=== PATIENT | male | born 1995 | race African-American/Black ===

== ENCOUNTER 2017-09-04 23:50 | Emergency (ER) | payer OTHER ==
[2017-09-05 00:15] VITALS: BP 139/97; PULSE 58; TEMP 98.7; BMI 21.9
--- NOTE | 2017-09-05 02:43 | PDOC ---
History of Present Illness - General History Source: Patient Exam Limitations: No Limitations - History of Present Illness Initial Comments: 09/05/17 04:10 The patient is a 22 year old female with no significant PMH who presents to the emergency department with an episode of abdominal pain shortly after urinating about 5 hours ago. He describes experiencing a sudden onset of LLQ abdominal pain right after urinating, which resolved shortly after. He denies any abdominal pain at presentation. He denies hematuria or dysuria. The patient notes he has a history of an unclear similar episode in the past but is unsure how to qualify it. The patient denies chest pain, shortness of breath, headache and dizziness. Denies fever, chills, nausea, vomit, diarrhea and constipation. Denies dysuria, frequency, urgency and hematuria. Allergies: NKA Past surgical history: None reported. Social history: No reported cigarette, alcohol, or drug use. PCP: Dr. Werner <Pino Brewer - Last Filed: 09/05/17 04:10> - General History Source: Patient <Duke Hussein - Last Filed: 09/05/17 19:25> - General Chief Complaint: Pain Stated Complaint: ABD PAIN Time Seen by Provider: 09/05/17 02:37 Past History <Pino Brewer - Last Filed: 09/05/17 04:10> - Past Medical History COPD: No Other medical history: Pt denies - Immunization History Immunization Up to Date: Yes - Suicide/Smoking/Psychosocial Hx Smoking History: Never smoked Have you smoked in the past 12 months: No Information on smoking cessation initiated: No Hx Alcohol Use: No Drug/Substance Use Hx: No Substance Use Type: None <Duke Hussein - Last Filed: 09/05/17 19:25> - Past Medical History Allergies/Adverse Reactions: Allergies Allergy/AdvReac Type Severity Reaction Status Date / Time No Known Allergies Allergy Verified 09/05/17 00:08 Home Medications: Ambulatory Orders Doxycycline Hyclate 100 mg PO BID #20 capsule 04/28/16 Ibuprofen [Motrin] 600 mg PO TID #30 tablet 09/05/17 Review of Systems - Review of Systems Able to Perform ROS?: Yes Comments:: 09/05/17 04:10 CONSTITUTIONAL: Absent: fever, chills, diaphoresis, generalized weakness, malaise, loss of appetite HEENT: Absent: rhinorrhea, nasal congestion, throat pain, throat swelling, difficulty swallowing, mouth swelling, ear pain, eye pain, visual Changes CARDIOVASCULAR: Absent: chest pain, syncope, palpitations, irregular heart rate, lightheadedness , peripheral edema RESPIRATORY: Absent: cough, shortness of breath, dyspnea with exertion, orthopnea, wheezing, stridor, hemoptysis GASTROINTESTINAL: (+) Episode of LLQ abdominal pain shortly after urination ( resolved). Absent: abdominal pain, abdominal distension, nausea, vomiting, diarrhea, constipation, melena, hematochezia GENITOURINARY: Absent: dysuria, frequency, urgency, hesitancy, hematuria, flank pain, genital pain MUSCULOSKELETAL: Absent: myalgia, arthralgia, joint swelling SKIN: Absent: rash, itching, pallor HEMATOLOGIC/IMMUNOLOGIC: Absent: easy bleeding, easy bruising, lymphadenopathy, frequent infections ENDOCRINE: Absent: unexplained weight gain, unexplained weight loss, heat intolerance, cold intolerance NEUROLOGIC: Absent: headache, focal weakness or paresthesias, dizziness, unsteady gait, seizure, mental status changes, bladder or bowel incontinence PSYCHIATRIC: Absent: anxiety, depression, suicidal or homicidal ideation, hallucinations. <Pino Brewer - Last Filed: 09/05/17 04:10> *Physical Exam - Vital Signs Last Vital Signs Temp Pulse Resp BP Pulse Ox 98.7 F 58 L 18 139/97 100 09/05/17 00:13 09/05/17 00:13 09/05/17 00:13 09/05/17 00:13 09/05/17 00:13 - Physical Exam Comments: 09/05/17 04:10 GENERAL: Well developed, well nourished. Awake and alert. No acute distress. HEENT: Normocephalic, atraumatic. PERRLA, EOMI. No conjunctival pallor. Sclera are non- icteric. Moist mucous membranes. Oropharynx is clear. NECK: Supple. Full ROM. No JVD. Carotid pulses 2+ and symmetric, without bruits. No thyromegaly. No lymphadenopathy. CARDIOVASCULAR: Regular rate and rhythm. No murmurs, rubs, or gallops. Distal pulses are 2+ and symmetric. PULMONARY: No evidence of respiratory distress. Lungs clear to auscultation bilaterally. No wheezing, rales or rhonchi. ABDOMINAL: Soft. Non-tender. Non-distended. No rebound or guarding. No organomegaly. Normoactive bowel sounds. MUSCULOSKELETAL: Normal range of motion at all joints. No bony deformities or tenderness. No CVA tenderness. EXTREMITIES: No cyanosis. No clubbing. No edema. No calf tenderness. SKIN: Warm and dry. Normal capillary refill. No rashes. No jaundice. NEUROLOGICAL: Alert, awake, appropriate. Cranial nerves 2-12 intact. No deficits to light touch and temperature in face, upper extremities and lower extremities. No motor deficits in the in face, upper extremities and lower extremities. Normoreflexic in the upper and lower extremities. Normal speech. Toes are downgoing bilaterally. Gait is normal without ataxia. PSYCHIATRIC: Cooperative. Good eye contact. Appropriate mood and affect. <Pino Brewer - Last Filed: 09/05/17 04:10> - Vital Signs Last Vital Signs Temp Pulse Resp BP Pulse Ox 98.7 F 58 L 18 139/97 100 09/05/17 00:13 09/05/17 00:13 09/05/17 00:13 09/05/17 00:13 09/05/17 00:13 <Duke Hussein - Last Filed: 09/05/17 19:25> ED Treatment Course - ADDITIONAL ORDERS Additional order review: Laboratory Results 09/05/17 03:13 Urine Color Yellow Urine Appearance Clear Urine pH 5.0 Ur Specific [place] 1.025 Urine Protein Negative Urine Glucose (UA) Negative Urine Ketones Negative Urine Blood Negative Urine Nitrite Negative Urine Bilirubin Negative Urine Urobilinogen Negative Ur Leukocyte Esterase Negative <Pino Brewer - Last Filed: 09/05/17 04:10> Medical Decision Making - Medical Decision Making 09/05/17 19:23 Dr. Hussein: The scribe's documentation has been prepared under my direction and personally reviewed by me in its entirery. I confirm that the note above accurately reflects all work, treatment, procedures, and medical decision making performed by me. Patient with remote history of kidney stones, had negative urinalysis, and CAT scan. Patient showed evidence of a punctate kidney stone in the right kidney. Patient referred to urology <Duke Hussein - Last Filed: 09/05/17 19:25> *DC/Admit/Observation/Transfer - Attestations Scribe Attestion: 09/05/17 04:11 Documentation prepared by Pino Brewer, acting as lpn medical assistant for Duke Hussein DO. <Pino Brewer - Last Filed: 09/05/17 04:10> - Discharge Dispostion Admit: No <Duke Hussein - Last Filed: 09/05/17 19:25> Diagnosis at time of Disposition: Kidney stone on left side Abdominal pain Qualifiers: Abdominal location: left lower quadrant Qualified Code(s): R10.32 - Left lower quadrant pain - Discharge Dispostion Disposition: HOME Condition at time of disposition: Stable - Prescriptions Prescriptions: Ibuprofen [Motrin] 600 mg PO TID #30 tablet - Referrals Referrals: Dagoberto Werner [Primary Care Provider] - Elmer Melgoza MD [Staff Physician] - - Patient Instructions Printed Discharge Instructions: DI for Kidney Stones, DI for Abdominal Pain- Adult Additional Instructions: YOu may have passed at kidney stone on the left side, which is no longer, because you have a small one right kidney. TAke medication as needed and drink plenty of fluids - Post Discharge Activity
[2017-09-05 03:29] LABS: URINE APPEARANCE CLEAR; URINE BILIRUBIN NEGATIVE (NEGATIVE); URINE BLOOD NEGATIVE (NEGATIVE); URINE COLOR YELLOW; URINE GLUCOSE (UA) NEGATIVE (NEGATIVE); URINE KETONE NEGATIVE (NEGATIVE); URINE LEUK ESTERASE NEGATIVE (NEGATIVE); URINE NITRITE NEGATIVE (NEGATIVE); URINE PROTEIN NEGATIVE (NEGATIVE); URINE UROBILINOGEN NEGATIVE mg/dL (0.2-1.0)
== END 2017-09-05 04:23 | disposition home or self-care (01) ==
LOC: JER 23:50
DX: N20.0 Calculus of kidney (principal)
CPT/HCPCS: 74176; 81003; 87086; 99282-25

== ENCOUNTER 2018-04-22 21:21 | Emergency (ER) | payer OTHER ==
--- NOTE | 2018-04-22 21:30 | PDOC ---
History of Present Illness - General History Source: Patient Exam Limitations: No Limitations <JustinaPino - Last Filed: 04/22/18 21:30> - History of Present Illness Initial Comments: 04/22/18 21:33 The patient is a 23 year old male with no significant past medical history who presents to the ED with complaints of a bump on his left foot that developed two months ago. The patient states the bump brings him pain when he applies pressure to his feet when walking. He states he often wears dress shoes for work and denies any injury to the area, cuts or recent infection. Denies any fevers or chills. <Jessica Cabrera - Last Filed: 04/22/18 21:44> - General Chief Complaint: Pain Stated Complaint: LEFT HEEL PAIN Time Seen by Provider: 04/22/18 21:28 Past History - Past Medical History COPD: No - Immunization History Immunization Up to Date: Yes - Suicide/Smoking/Psychosocial Hx Smoking History: Never smoked Have you smoked in the past 12 months: No Hx Alcohol Use: No Drug/Substance Use Hx: No Substance Use Type: None <Pino Horn - Last Filed: 04/22/18 21:30> <Jessica Cabrera - Last Filed: 04/22/18 21:44> - Past Medical History Allergies/Adverse Reactions: Allergies Allergy/AdvReac Type Severity Reaction Status Date / Time No Known Allergies Allergy Verified 04/22/18 21:22 Home Medications: Ambulatory Orders NK [No Known Home Medication] 04/22/18 Review of Systems - Review of Systems Comments:: 04/22/18 21:35 GENERAL/CONSTITUTIONAL: No fever or chills. No weakness. HEAD, EYES, EARS, NOSE AND THROAT: No change in vision. No ear pain or discharge. No sore throat. CARDIOVASCULAR: No chest pain or shortness of breath. RESPIRATORY: No cough, wheezing, or hemoptysis. GASTROINTESTINAL: No nausea, vomiting, diarrhea or constipation. GENITOURINARY: No dysuria, frequency, or change in urination. MUSCULOSKELETAL: (+) Left foot pain. No neck or back pain. SKIN: No rash NEUROLOGIC: No headache, vertigo, loss of consciousness, or change in strength/ sensation. ENDOCRINE: No increased thirst. No abnormal weight change. HEMATOLOGIC/LYMPHATIC: No anemia, easy bleeding, or history of blood clots. ALLERGIC/IMMUNOLOGIC: No hives or skin allergy. All Other Systems: Reviewed and Negative <Jessica Cabrera - Last Filed: 04/22/18 21:44> *Physical Exam - Vital Signs Last Vital Signs Temp Pulse Resp BP Pulse Ox 98.5 F 66 15 137/76 100 04/22/18 21:21 04/22/18 21:21 04/22/18 21:21 04/22/18 21:21 04/22/18 21:21 <Pino Horn - Last Filed: 04/22/18 21:30> - Vital Signs Last Vital Signs Temp Pulse Resp BP Pulse Ox 98.5 F 66 15 137/76 100 04/22/18 21:21 04/22/18 21:21 04/22/18 21:21 04/22/18 21:21 04/22/18 21:21 - Physical Exam Comments: 04/22/18 21:38 GENERAL: Awake, alert, and fully oriented, in no acute distress HEAD: No signs of trauma EYES: PERRLA, EOMI, sclera anicteric, conjunctiva clear ENT: Auricles normal inspection, hearing grossly normal, nares patent, oropharynx clear without exudates. Moist mucosa NECK: Normal ROM, supple, no lymphadenopathy, JVD, or masses LUNGS: Breath sounds equal, clear to auscultation bilaterally. No wheezes, and no crackles HEART: Regular rate and rhythm, normal S1 and S2, no murmurs, rubs or gallops ABDOMEN: Soft, nontender, normoactive bowel sounds. No guarding, no rebound. No masses EXTREMITIES: (+) 3 x 3mm left heel callus, no drainage, erythema, no infection. Normal range of motion, no edema. No clubbing or cyanosis. No cords, erythema NEUROLOGICAL: Cranial nerves II through XII grossly intact. Normal speech, normal gait SKIN: Warm, Dry, normal turgor, no rashes <Jessica Cabrera - Last Filed: 04/22/18 21:44> Medical Decision Making - Medical Decision Making 04/22/18 21:30 A portion of this note was documented by scribe services under my direction. I have reviewed the details of the note, within reason, and agree with the documentation with the following case summary and management plan written by me. Patient treated in the ED. Nursing notes are reviewed and incorporated into the medical decision-making. Vital signs reviewed. Vital Signs Temp Pulse Resp BP Pulse Ox 98.5 F 66 15 137/76 100 04/22/18 21:21 04/22/18 21:21 04/22/18 21:21 04/22/18 21:21 04/22/18 21:21 23-year-old male with no medical history presents with left heel "bump" for 2 months. Patient noted that he has developed this intermittent painful left bump to her left heel. States that he walks frequently and dress shoes were stopped. No fevers or chills. Stated the pain was persistent so came to the ER. Patient was concerned that he thought this may be some other underlying pathology such as infectiobn or malignancy. For my examination, this is consistent with callused foot. I advised supportive care in good heel support. I will give him referral to coin machine servicer repairer. There are no signs of infection. Do not suspect his malignancy. Patient feels reassured and he would like to go home. I discussed the physical exam findings, ancillary test results and final diagnoses with the patient. I answered all of the patient's questions. The patient was satisfied with the care received and felt comfortable with the discharge plan and treatment plan. The patient will call their primary care physician within 24 hours to arrange follow-up and will return to the Emergency Department with any new, persistant or worsening symptoms. <Pino Horn - Last Filed: 04/22/18 21:30> *DC/Admit/Observation/Transfer <Pino Horn - Last Filed: 04/22/18 21:30> - Attestations Scribe Attestion: 04/22/18 21:44 Documentation prepared by Jessica Cabrera, acting as certified court/medical interpreter for Pino Horn MD. <Jessica Cabrera - Last Filed: 04/22/18 21:44> Diagnosis at time of Disposition: Heel callus - Discharge Dispostion Disposition: HOME Condition at time of disposition: Good - Referrals Referrals: Dagoberto Werner [Primary Care Provider] - Shaggy Flores MD [Staff Physician] - - Patient Instructions Printed Discharge Instructions: DI for Calluses and Corns Additional Instructions: Please make an appointment with a coin machine servicer repairer. Call to schedule an appointment. - Post Discharge Activity
[2018-04-22 21:58] VITALS: BP 137/76; PULSE 66; TEMP 98.5; BMI 23.5
== END 2018-04-22 21:35 | disposition home or self-care (01) ==
LOC: FER 21:21
DX: L84 Corns and callosities (principal)
CPT/HCPCS: 99282-25

== ENCOUNTER 2018-05-25 15:22 | Emergency (ER) | payer OTHER ==
[2018-05-25 15:28] VITALS: BP 128/70; PULSE 64; TEMP 98.1; BMI 21.9
[2018-05-25] MEDS ORDERED: diphenhydrAMINE HCL 25 MG CAPSULE (FP) PO ONE (15:35)
[2018-05-25] MEDS ORDERED: predniSONE 20 MG TABLET (UD) PO ONE (15:35)
--- NOTE | 2018-05-25 15:41 | PDOC ---
History of Present Illness - General Chief Complaint: Rash Stated Complaint: RASH Time Seen by Provider: 05/25/18 15:29 History Source: Patient - History of Present Illness Initial Comments: 05/25/18 15:36 23yoM no pmhx presents w/ 2d of generalized, progressive itchy rash. no fevers, no warmth, no obvious erythema but pt is very dark skinned. no difficulty breathing, no itchy/watery eyes. used cortisone cream yesterday without relief. Past History - Past Medical History Allergies/Adverse Reactions: Allergies Allergy/AdvReac Type Severity Reaction Status Date / Time No Known Allergies Allergy Verified 05/25/18 15:23 Home Medications: Ambulatory Orders Diphenhydramine HCl [Benadryl -] 25 mg PO Q8H 4 Days #12 capsule 05/25/18 Prednisone [Prednisone 50 MG TABLETS] 50 mg PO DAILY 4 Days #4 tablet 05/25/18 COPD: No - Immunization History Immunization Up to Date: Yes - Suicide/Smoking/Psychosocial Hx Smoking History: Never smoked Have you smoked in the past 12 months: No Hx Alcohol Use: No Drug/Substance Use Hx: No Substance Use Type: None Review of Systems - Review of Systems All Other Systems: Reviewed and Negative *Physical Exam - Vital Signs Last Vital Signs Temp Pulse Resp BP Pulse Ox 98.1 F 64 14 128/70 100 05/25/18 15:23 05/25/18 15:23 05/25/18 15:23 05/25/18 15:23 05/25/18 15:23 - Physical Exam Comments: 05/25/18 15:37 nad well apeparing RRR CTABL soft NTND diffuse, fine rash of very small papules, no pustules, no bullae, no appreciable warmth/erythema. A&O x 3 Medical Decision Making - Medical Decision Making 05/25/18 15:38 23yoM w/ viral exanthem vs. allergy, no apparent allergic triggers on history. No e/o anaphylaxis. - benadryl/prednisoen - f/u w/ pmd. *DC/Admit/Observation/Transfer Diagnosis at time of Disposition: Rash and nonspecific skin eruption - Discharge Dispostion Disposition: HOME Condition at time of disposition: Good Decision to Admit order: No - Prescriptions Prescriptions: Diphenhydramine HCl [Benadryl -] 25 mg PO Q8H 4 Days #12 capsule Prednisone [Prednisone 50 MG TABLETS] 50 mg PO DAILY 4 Days #4 tablet - Referrals Referrals: Dagoberto Werner [Primary Care Provider] - - Patient Instructions Printed Discharge Instructions: DI for Viral Rash-Child Additional Instructions: Follow up with your regular doctor this week. Avoid possible allergens - no new detergents, no new soaps. medicines have been submitted to your pharmacy: Benadryl for itching and allergy Prednisone for inflammation Pepcid. Return ot the ER for: difficulty breathing or swallowing, swelling or lips/mouth/tongue. - Post Discharge Activity
[2018-05-25] MEDS ORDERED: predniSONE 10 MG TABLET (UD) ONE (15:43)
[2018-05-25] MEDS ORDERED: predniSONE 20 MG TABLET (UD) ONE (15:44)
[2018-05-25] MEDS ORDERED: diphenhydrAMINE HCL 50 MG CAPSULE ONE (15:44)
== END 2018-05-25 15:54 | disposition home or self-care (01) ==
LOC: FER 15:22
DX: R21 Rash and other nonspecific skin eruption (principal)
CPT/HCPCS: 99281-25

== ENCOUNTER 2019-02-12 20:52 | Emergency (ER) | payer OTHER ==
[2019-02-12 21:07] VITALS: BP 136/79; PULSE 78; TEMP 98.1; BMI 22.7
[2019-02-12 21:35] LABS: EPITHELIAL CELLS FEW /hpf
[2019-02-12] MEDS ORDERED: CEPHALEXIN MONOHYDRATE 500 MG CAPSULE (UD) PO ONE (21:37)
[2019-02-12] MEDS ORDERED: CEPHALEXIN MONOHYDRATE 500 MG CAPSULE (UD) ONE (21:42)
--- NOTE | 2019-02-12 21:52 | PDOC ---
Documentation entered by Sylvester Napier SCRIBE, acting as scribe for Na Allen MD. Na Allen MD: This documentation has been prepared by the Karthikeyan pedroza Elijah, SCRIBE, under my direction and personally reviewed by me in its entirety. I confirm that the documentation accurately reflects all work, treatment, procedures, and medical decision making performed by me. History of Present Illness - General Chief Complaint: Urinary Problem Stated Complaint: PAINFUL URINATION WITH SOME BLOOD Time Seen by Provider: 02/12/19 21:00 History Source: Patient Exam Limitations: No Limitations - History of Present Illness Initial Comments: 02/12/19 21:29 The patient is a 24 year old male with no reported significant past medical history who presents to the ED with hematuria occurring this afternoon. Patient reports that he went to use the restroom today, and when he urinated, three drops of red blood came out as well as some burning with urination. Patient reports being sexually active with 1 partner, occasionally using condoms and also wanted to get checked for an STI (Last checked x4 months prior which he states was wnl). hematuria has since resolved. Patient reported upper right sided back pain that began a week ago but has since subsided. Denies Urinary frequency, urinary Urgency, testicular pain and past STD's. no urethral discharge. Denies fever, chills, chest pain, SOB, palpitation, dizziness, weakness, N, V, D , abdominal pain, bowel problems, leg swelling, No sick contacts or travel. Social history: Lives with family. No tobacco, ETOH or drug use. 02/12/19 21:52 02/12/19 21:53 Past History - Past Medical History Allergies/Adverse Reactions: Allergies Allergy/AdvReac Type Severity Reaction Status Date / Time No Known Allergies Allergy Verified 02/12/19 20:53 Home Medications: Ambulatory Orders Cephalexin Monohydrate [Keflex -] 500 mg PO BID #14 capsule 02/12/19 COPD: No - Immunization History Immunization Up to Date: Yes - Suicide/Smoking/Psychosocial Hx Smoking History: Never smoked Have you smoked in the past 12 months: No Information on smoking cessation initiated: No Hx Alcohol Use: No Drug/Substance Use Hx: No Substance Use Type: None Review of Systems - Review of Systems Comments:: 02/12/19 21:36 Constitutional: no fevers or chills. HEENT: no headache or dizziness. No congestion. No visual/hearing disturbances. CVS: no cp or syncope. Resp: no sob. No cough. Gastrointestinal: no abdominal pain, nausea or vomiting. no diarrhea. Genitourinary: +hematuria and dysuria; no frequency or urgency. no testicular or scrotal pain/swelling. MUSCULOSKELETAL: No joint pain and swelling. No neck or back pain. SKIN: no redness or skin changes, no discharge, no rash. No wounds. Hematologic: no easy bruising/bleeding. NEUROLOGIC: No headache, dizziness, LOC or altered mental status. No weakness, numbness or tingling. Psych: no anxiety or depression Allergic/Immunologic: no allergies All other systems reviewed and negative, or as documented in HPI. 02/12/19 21:54 *Physical Exam - Vital Signs Last Vital Signs Temp Pulse Resp BP Pulse Ox 98.1 F 78 16 136/79 99 02/12/19 20:53 02/12/19 20:53 02/12/19 20:53 02/12/19 20:53 02/12/19 20:53 - Physical Exam Comments: 02/12/19 21:27 General: Well appearing, awake and alert, NAD. HEENT: NCAT, PERRL, EOMI, clear conjunctiva, anicteric, moist mucus membranes, clear oropharynx, no oral lesions.. Neck: neck supple, FROM Resp: CTAB, normal and even respirations, no respiratory distress CVS: RRR, no murmurs, 2+ peripheral pulses throughout, no peripheral edema Abdomen: soft, NTND, no peritoneal signs. Male : normal external genitalia, no lesions, normal testicular lie, no scrotal or testicular edema or tenderness. +cremaster reflex bilaterally. no hernia. no urethral discharge Back: nontender, normal inspection and ROM, no CVAT/flank tenderness MSK: no edema, AYALA x4, ROM intact. No clubbing or cyanosis. normal bulk and tone. Neuro: alert Psych: calm and cooperative Skin: warm and well perfused, cap refill <2 sec, normal color 02/12/19 21:55 ED Treatment Course - ADDITIONAL ORDERS Additional order review: Laboratory Results 02/12/19 21:08 Urine Color Yellow Urine Appearance Sl cloudy Urine pH 5.0 Urine Protein Negative Urine Glucose (UA) Negative Urine Ketones Trace Urine Blood 3+ H Urine Nitrite Negative Urine Bilirubin Negative Urine Urobilinogen 0.2 Ur Leukocyte Esterase 1+ Urine RBC 10-20 Urine WBC 10-20 Ur Transition Epith Cell Few - Medications Given in the ED: ED Medications Discontinued Medications Generic Name Dose Route Start Last Admin Trade Name Liv PRN Reason Stop Dose Admin Cephalexin HCl 500 mg 02/12/19 21:37 02/12/19 21:41 Keflex - PO 02/12/19 21:38 500 mg ONCE ONE Administration Medical Decision Making - Medical Decision Making 02/12/19 21:56 hpi as documented VS reviewed, wnl DDx. Male : hernia, orchitis, epididymitis, UTI, pyelonephritis, appy, STD, trich. renal /ureteral colic. no sytemic sx. GC/chlamydia and trich testing sent UA prelim with WBC/RBCs>10-20, correlating with likely hemorrhagic cystitis with acute UTI sx (hematuria and dysuria) no flank or abdominal pain to suggest renal or ureteral colic, does not appear colicky. treat with keflex for acute UTI, f/u urine cultures this is most likely alternative etiology f/u GC/chlamycia/trich testing, if positive then call back for proper treatment. keflex course x 1 week, first dose here. return precautions, worsening infection, genitalia/abdominal sx. pt verbalized understanding of impression and plan. Abstinence and safe sex precautions were provided and the patient demonstrated understanding. *DC/Admit/Observation/Transfer Diagnosis at time of Disposition: Hemorrhagic cystitis - Discharge Dispostion Disposition: HOME Condition at time of disposition: Improved Decision to Admit order: No - Prescriptions Prescriptions: Cephalexin Monohydrate [Keflex -] 500 mg PO BID #14 capsule - Referrals Referrals: [facility] [place] [Provider Group] [facility] [address] [Provider Group] - Patient Instructions Printed Discharge Instructions: How to Detect and Treat STDs, DI for Urinary Tract Infection (UTI) Additional Instructions: 1) Please follow-up with your primary care doctor in the next 1-2 days. Please call tomorrow for for any urgent issues. referrals given for followup 2) You were given a copy of the tests performed today. Please bring the results with you and review them with your primary care doctor. Your laboratory results were notable for blood and inflammation consistent with infection in your urinary tract. your std testing is still pending, you should have results in the next 24-48 hours, expect a call or you can call the department for results that will determine if you need further treatment 3) If you have any worsening of symptoms or any other concerns please return to the ED immediately. Return if worsening symptoms including fevers, headache, vomiting, visual or hearing disturbances, abdominal pain, chest pain, shortness of breath, syncope, dehydration, inability to take things by mouth/vomiting, altered mental status, or worsening concerning symptoms. 4) Please continue taking your home medications as directed. your medications on discharge include keflex twice a day x 1 week . side effects may include upset stomach, abdominal pain, vomiting, or diarrhea. do not drink alcohol with your medications. practice safe sex, condom use and regular STD testing. practice proper hygiene - Post Discharge Activity
== END 2019-02-12 22:14 | disposition home or self-care (01) ==
LOC: FER 20:52
DX: N30.91 Cystitis, unspecified with hematuria (principal)
CPT/HCPCS: 36415; 81003; 81015; 87081; 87086; 87110; 87491; 87591; 87661; 99283-25

== ENCOUNTER 2019-06-07 22:17 | Emergency (ER) | payer SELFPAY ==
[2019-06-07 22:31] VITALS: BP 140/96; PULSE 70; TEMP 99; BMI 22.8
[2019-06-07 23:10] LABS: EPITHELIAL CELLS RARE /hpf
[2019-06-07] MEDS ORDERED: KETOROLAC TROMETHAMINE 30 MG/1 ML VIAL IVPUSH ONE (23:15)
[2019-06-07 23:17] LABS: BASO % 3.2 % (0-2.0); EOS % 1.4 % (0-4.5); HEMATOCRIT 45.2 % (35.4-49); HEMOGLOBIN 15.5 GM/dl (11.7-16.9); LYMPH % 15.9 % (8-40); MCH 31.8 pg (25.7-33.7); MCHC 34.3 g/dl (32.0-35.9); MEAN CELL VOLUME 92.6 fl (80-96); MONO % 11.6 % (3.8-10.2); NEUT % 67.9 % (42.8-82.8); PLATELET COUNT 173 K/MM3 (134-434); RBC 4.88 M/mm3 (4.00-5.60); RDW 12.3 % (11.9-15.9); WHITE BLOOD COUNT 9.3 K/mm3 (4.0-10.8)
[2019-06-07] MEDS ORDERED: ONDANSETRON 4 MG/2 ML VIAL ONE (23:17)
[2019-06-07] MEDS ORDERED: ONDANSETRON 4 MG/2 ML VIAL IVPUSH ONE (23:17)
[2019-06-07] MEDS ORDERED: KETOROLAC TROMETHAMINE 30 MG/1 ML VIAL ONE (23:17)
[2019-06-07 23:41] LABS: ALBUMIN 4.2 g/dl (3.4-5.0); BILIRUBIN,TOTAL 1.5 mg/dl (0.2-1); CALCIUM 9.3 mg/dl (8.5-10); CREATININE 1.9 mg/dl (0.55-1.3); TOT PROT 7.4 g/dl (6.4-8.2)
[2019-06-07] MEDS ORDERED: SODIUM CHLORIDE 1,000 ML IV STA (23:53)
--- NOTE | 2019-06-08 00:36 | PDOC ---
Documentation entered by Felisah Holly SCRIBE, acting as scribe for Danielle Edmonds MD. Danielle Edmonds MD: This documentation has been prepared by the Avni pedroza Adrianna, SCRIBE, under my direction and personally reviewed by me in its entirety. I confirm that the documentation accurately reflects all work, treatment, procedures, and medical decision making performed by me. History of Present Illness - General Chief Complaint: Urinary Problem Time Seen by Provider: 06/07/19 22:19 - History of Present Illness Initial Comments: The patient is a 24 year old male, with a significant PMH of kidney stones ( last year, was passed on its own without urology intervention), who presents to the ED for evaluation of abdominal pain for one day. Patient complains of abdominal pain that originated in the epigastric region, but is now most prominent at the right flank and lower abdomen. Patient went to [facility] ER at 3am this morning, and his CT scan demonstrated a 1mm right kidney stone. He was given morphine and toradol at [facility] with some relief of symptoms. Patient notes his pain returned earlier this afternoon, with new onset urinary hesitancy. He states he feels as if he needs to urinate, but is only able to produce a small amount. Patient notes he has tried to drink water, but it makes him feel nauseous (denies any vomit). He has taken Tylenol earlier today with minimal relief of symptoms. Patient denies dysuria or hematuria. Allergies: NKA, NKDA Surgical History: None reported Social History: Denies EtOH, tobacco, or illicit drug use PCP: Dr. Werner Past History - Past Medical History Allergies/Adverse Reactions: Allergies Allergy/AdvReac Type Severity Reaction Status Date / Time No Known Allergies Allergy Verified 02/12/19 20:53 Home Medications: Ambulatory Orders Ondansetron [Zofran *Odt*] 4 mg SL BID PRN #10 od.tablet 06/08/19 Oxycodone HCl/Acetaminophen [Percocet 5-325 mg Tablet] 1 tab PO Q6H PRN #8 tablet MDD 2 tabs 06/08/19 COPD: No Kidney Stones: Yes - Immunization History Immunization Up to Date: Yes - Psycho Social/Smoking Cessation Hx Smoking History: Never smoked Have you smoked in the past 12 months: No Hx Alcohol Use: No Drug/Substance Use Hx: No Substance Use Type: None Review of Systems - Review of Systems Comments:: GENERAL/CONSTITUTIONAL: No fever or chills. No weakness. HEAD, EYES, EARS, NOSE AND THROAT: No change in vision. No ear pain or discharge. No sore throat. CARDIOVASCULAR: No chest pain or shortness of breath. RESPIRATORY: No cough, wheezing, or hemoptysis. GASTROINTESTINAL: +Nausea. +Lower abdominal pain. +Epigastric pain. No vomiting , diarrhea or constipation. GENITOURINARY: +Urinary hesitancy. +Right 1mm kidney stone. No dysuria or frequency. MUSCULOSKELETAL: +Right flank pain. No joint or muscle swelling or pain. No neck pain. SKIN: No rash NEUROLOGIC: No headache, vertigo, loss of consciousness, or change in strength/ sensation. ENDOCRINE: No increased thirst. No abnormal weight change. HEMATOLOGIC/LYMPHATIC: No anemia, easy bleeding, or history of blood clots. ALLERGIC/IMMUNOLOGIC: No hives or skin allergy. *Physical Exam - Vital Signs Last Vital Signs Temp Pulse Resp BP Pulse Ox 99 F 70 16 140/96 99 06/07/19 22:20 06/07/19 22:20 06/07/19 22:20 06/07/19 22:20 06/07/19 22:20 - Physical Exam Comments: GENERAL: Awake, alert, and fully oriented, in no acute distress HEAD: No signs of trauma EYES: PERRLA, EOMI, sclera anicteric, conjunctiva clear ENT: Auricles normal inspection, hearing grossly normal, nares patent, oropharynx clear without exudates. Moist mucosa NECK: Normal ROM, supple, no lymphadenopathy, JVD, or masses LUNGS: Breath sounds equal, clear to auscultation bilaterally. No wheezes, and no crackles HEART: Regular rate and rhythm, normal S1 and S2, no murmurs, rubs or gallops ABDOMEN: Soft, nontender, normoactive bowel sounds. No guarding, no rebound. No masses BACK: +Mild right flank tenderness to palpation. +Mild right CVA tenderness to palpation. EXTREMITIES: Normal range of motion, no edema. No clubbing or cyanosis. No cords, erythema, or tenderness NEUROLOGICAL: Cranial nerves II through XII grossly intact. Normal speech, normal gait SKIN: Warm, Dry, normal turgor, no rashes or lesions noted. ED Treatment Course - LABORATORY CBC & Chemistry Diagram: 06/07/19 23:11 06/07/19 23:11 - ADDITIONAL ORDERS Additional order review: Laboratory Results 06/07/19 06/07/19 23:11 22:51 Sodium 135 L Potassium 4.0 Chloride 103 Carbon Dioxide 25 Anion Gap 7 L BUN 19.0 H Creatinine 1.9 H Est GFR (CKD-EPI)AfAm 55.55 Est GFR (CKD-EPI)NonAf 47.93 Random Glucose 104 Calcium 9.3 Total Bilirubin 1.5 H AST 28 ALT 31 Alkaline Phosphatase 58 Total Protein 7.4 Albumin 4.2 Urine Color Yellow Urine Appearance Clear Urine pH 5.5 Urine Protein Negative Urine Glucose (UA) Negative Urine Ketones Negative Urine Blood Trace-intact Urine Nitrite Negative Urine Bilirubin Negative Urine Urobilinogen 0.2 Ur Leukocyte Esterase Negative Urine RBC 5-10 Urine WBC 0-2 Ur Transition Epith Cell Rare 06/07/19 23:11 RBC 4.88 MCV 92.6 MCHC 34.3 RDW 12.3 MPV 9.0 Neutrophils % 67.9 Lymphocytes % 15.9 Monocytes % 11.6 H Eosinophils % 1.4 Basophils % 3.2 H - Medications Given in the ED: ED Medications Discontinued Medications Generic Name Dose Route Start Last Admin Trade Name Freq PRN Reason Stop Dose Admin Ketorolac Tromethamine 30 mg 06/07/19 23:15 06/07/19 23:20 Toradol Injection - IVPUSH 06/07/19 23:16 30 mg ONCE ONE Administration Ondansetron HCl 4 mg 06/07/19 23:17 06/07/19 23:20 Zofran Injection IVPUSH 06/07/19 23:18 4 mg ONCE ONE Administration Medical Decision Making - Medical Decision Making As noted above, this 24-year-old man, otherwise healthy except for history of kidney stones presents with right-sided renal colic, diagnosed with 1 mm ureteral stone last night at another ER. Patient was discharged without history of IV hydration and no medications for nausea or severe pain were prescribed. Patient has taken 2 doses of Tylenol during the day today but continues to have severe pain and nausea prevents him from orally hydrating himself. Exam as noted. Urinalysis as well as CBC/chemistry profile obtained and IV hydration begun 1 L normal saline. Patient also given Toradol 30 mg IV and Zofran 4 mg IV. Laboratory evaluation notable for BUN of 19 with a creatinine of 1.9, suggestive of prerenal azotemia. Patient given second liter of normal saline IV. Patient feels significantly better after medications for pain and nausea as well as IV hydration. He was discharged with instructions to continue drinking plenty of fluids. Prescriptions for Zofran ODT 4 mg (#10) to be used up to twice a day as needed for nausea/vomiting as well as Percocet 5/325 (#8) to be used up to twice a day as needed for severe pain. He should use Tylenol/Motrin as needed for mild to moderate pain. Patient was given Dr. Browning's referral information for urologic follow-up He should return to the ER if he has severe, persistent pain or experiences vomiting/fever Discharge - Discharge Information Problems reviewed: Yes Clinical Impression/Diagnosis: Renal colic on right side Condition: Stable Disposition: HOME - Additional Discharge Information Prescriptions: Ondansetron [Zofran *Odt*] 4 mg SL BID PRN #10 od.tablet PRN Reason: Nausea Oxycodone HCl/Acetaminophen [Percocet 5-325 mg Tablet] 1 tab PO Q6H PRN #8 tablet MDD 2 tabs PRN Reason: Severe Pain - Follow up/Referral Referrals: Dagoberto Werner [Primary Care Provider] - Shamar Browning MD [Staff Physician] - 1 week - Patient Discharge Instructions Patient Printed Discharge Instructions: Kidney Stones -- Adult Additional Instructions: Drink plenty of water Zofran ODT 4 mg up to twice a day as needed for nausea/vomiting Tylenol for mild to moderate pain; Percocet 5/325 for severe pain (up to 2 tabs per day) Return to ER if you have severe, persistent pain/persistent vomiting or develop fever Follow-up with urologist (Dr. Browning) within the next 5 days - Post Discharge Activity
== END 2019-06-08 00:42 | disposition home or self-care (01) ==
LOC: FER 22:17
PROC: 3E0333Z Introduction of Anti-inflammatory into Peripheral Vein, Percutaneous Approach (ICD-10-PCS; principal; 2019-06-07)
PROC: 3E033GC Introduction of Other Therapeutic Substance into Peripheral Vein, Percutaneous Approach (ICD-10-PCS; 2019-06-07)
PROC: 3E0337Z Introduction of Electrolytic and Water Balance Substance into Peripheral Vein, Percutaneous Approach (ICD-10-PCS; 2019-06-07)
DX: N20.0 Calculus of kidney (principal)
CPT/HCPCS: 36415; 80053; 81003; 81015; 85025; 99283-25; J7030

== ENCOUNTER 2020-02-24 02:23 | Emergency (ER) | payer OTHER ==
--- NOTE | 2020-02-24 02:26 | PDOC ---
History of Present Illness - General Chief Complaint: Pain Stated Complaint: UPPER BACK PAIN Time Seen by Provider: 02/24/20 02:26 - History of Present Illness Initial Comments: 02/24/20 02:49 This 25-year-old man with history of kidney stones presents with 2-day history of left-sided posterior chest pain, worse with movement and deep breathing. Patient denies trauma or overuse. He has taken acetaminophen for this pain tonight without significant relief The patient has had this type of pain several times previously but attributed to muscle strain from exercising in the gym. Patient has not been in gym in several months secondary to pandemic shutdown. He has no history of fever; he has had a mild cough this evening. No shortness of breath or anterior chest pain noted. No history of respiratory or cardiac issues. Non-smoker; no strong early history of coronary artery disease in his family No daily alcohol or other recreational drug use Past History - Medical History Allergies/Adverse Reactions: Allergies Allergy/AdvReac Type Severity Reaction Status Date / Time No Known Allergies Allergy Verified 02/24/20 02:24 Home Medications: Ambulatory Orders Ondansetron [Zofran *Odt*] 4 mg SL BID PRN #10 od.tablet 06/08/19 Oxycodone HCl/Acetaminophen [Percocet 5-325 mg Tablet] 1 tab PO Q6H PRN #8 tablet MDD 2 tabs 06/08/19 Diclofenac Sodium 75 mg PO BID PRN #20 tablet. 02/24/20 COPD: No Kidney Stones: Yes - Immunization History Immunization Up to Date: Yes - Psycho-Social/Smoking History Smoking History: Never smoked Have you smoked in the past 12 months: No Review of Systems - Review of Systems Able to Perform ROS?: Yes Comments:: 12 point review of systems is negative except for what is noted in the history of present illness *Physical Exam - Physical Exam GENERAL: Adult male, alert and oriented x3, no acute distress HEAD: Normal with no signs of trauma. EYES: PERRLA, EOMI, sclera anicteric, conjunctiva clear. ENT: Ears normal, nares patent, oropharynx clear without exudates. Moist mucous membranes. NECK: Normal range of motion, supple without lymphadenopathy, JVD, or masses. LUNGS: Breath sounds equal, clear to auscultation bilaterally. No wheezes, and no crackles. CHEST WALL: Localized tenderness left periscapular region (rhomboid muscles); pain reproduced with movement of left shoulder No crepitus or step-offs palpated No midline vertebral body tenderness HEART:Regular rate and rhythm, normal S1 and S2 without murmur, rub or gallop. ABDOMEN:.normal bowel sounds No guarding,tenderness or rebound.No masses No distention. no CVA tenderness EXTREMITIES: Normal range of motion, no edema. No clubbing or cyanosis. No erythema, or tenderness. NEUROLOGICAL: Cranial nerves II through XII grossly intact. Normal speech. No focal neurological deficits. SKIN: Warm, Dry, normal turgor, no rashes or lesions noted. Twelve-lead electrocardiogram performed and interpreted by me: Normal sinus rhythm with sinus arrhythmia 64 bpm; there is J-point elevation seen in lateral leads. No acute ST or T wave elevations otherwise. There is no evidence of acute cardiac arrhythmia. Colt and intervals are normal. ED Treatment Course - LABORATORY CBC & Chemistry Diagram: 02/24/20 02:45 02/24/20 02:45 Medical Decision Making - Medical Decision Making IV access was obtained and CBC/chemistry profile/troponin sent. Patient received 1 L normal saline IV and 30 mg of Toradol IV. Patient reports some relief in his upper back pain after IV hydration and IV Toradol. Laboratory evaluation is essentially normal except for evidence of mild prerenal azotemia. Clinical presentation most consistent with left upper back (periscapular) muscle strain/muscle spasm. Since patient denies overuse/trauma to the area, his muscle spasm is likely related to postural habits. The patient admits that he spends many hours at his monitor at work and his posture may not be ideal. Frequent breaks and stretching exercises recommended. If he has persistent pain in the area, he should consult his general medical doctor and pursue physical therapy. Meanwhile, he should rest, drink plenty of fluids. Prescription for diclofenac 75 mg to be taken up to twice a day with food as needed for pain has been sent to his pharmacy. He should return to the ER if he has severe, persistent pain or develops any shortness of breath, cough, fever Discharge - Discharge Information Problems reviewed: Yes Clinical Impression/Diagnosis: Muscle strain of left upper back Qualifiers: Encounter type: initial encounter Qualified Code(s): S29.012A - Strain of muscle and tendon of back wall of thorax, initial encounter Condition: Stable Disposition: HOME - Additional Discharge Information Prescriptions: Diclofenac Sodium 75 mg PO BID PRN #[address] tablet.[address] LYNCH Reason: Pain - Follow up/Referral - Patient Discharge Instructions Patient Printed Discharge Instructions: DI for Thoracic Back Pain Additional Instructions: Avoid strenuous activity involving upper body for the next several days Drink plenty of fluids Can use warm compresses to area of pain as needed Diclofenac 75 mg twice a day as neededtake with food Return to ER if you have severe pain or shortness of breath Contact your general doctor regarding ivonne's ER visit and follow-up as arranged - Post Discharge Activity
[2020-02-24 02:27] VITALS: BP 134/91; PULSE 73; TEMP 98.6; BMI 23.5
[2020-02-24] MEDS ORDERED: KETOROLAC TROMETHAMINE 30 MG/1 ML VIAL IVPUSH ONE (03:09)
[2020-02-24] MEDS ORDERED: KETOROLAC TROMETHAMINE 30 MG/1 ML VIAL ONE (03:10)
[2020-02-24 03:18] LABS: BASO % 0.9 % (0-2.0); EOS % 3.5 % (0-4.5); HEMOGLOBIN 15.5 GM/dL (11.7-16.9); MCH 31.5 pg (25.7-33.7); MCHC 33.8 g/dl (32.0-35.9); MEAN CELL VOLUME 93.3 fl (80-96); MEAN PLT VOLUME 8.9 fl (7.5-11.1); NEUT % 49.6 % (42.8-82.8); PLATELET COUNT 176 K/MM3 (134-434); RBC 4.93 M/mm3 (4.00-5.60); RDW 13.7 % (11.9-15.9); WHITE BLOOD COUNT 7.6 K/mm3 (4.0-10.0)
[2020-02-24 03:43] LABS: ALBUMIN 4.2 g/dl (3.4-5.0); ALK PHOS 75 U/L (45-117); ANION GAP 4 MMOL/L (8-16); BLOOD UREA NITROGEN 18.4 mg/dL (7-18); CALCIUM 9.2 mg/dL (8.5-10.1); CHLORIDE 107 mmol/L (98-107); CO2 28 mmol/L (21-32); CREATININE 1.2 mg/dL (0.55-1.3); GLUCOSE,RANDOM 95 mg/dL (74-106); POTASSIUM 4.2 mmol/L (3.5-5.1); SGOT/AST 18 U/L (15-37); SGPT/ALT 52 U/L (13-61); SODIUM 140 mmol/L (136-145); TOT PROT 7.9 g/dl (6.4-8.2)
[2020-02-24] MEDS ORDERED: SODIUM CHLORIDE 1,000 ML IV STA (04:10)
--- NOTE | 2020-02-24 09:22 | EKG ---
Test Reason : Blood Pressure : / mmHG Vent. Rate : 064 BPM Atrial Rate : 064 BPM P-R Int : 152 ms QRS Dur : 094 ms QT Int : 366 ms P-R-T Axes : 052 067 044 degrees QTc Int : 377 ms NORMAL SINUS RHYTHM WITH SINUS ARRHYTHMIA ST ELEVATION, CONSIDER EARLY REPOLARIZATION BORDERLINE ECG NO PREVIOUS ECGS AVAILABLE Confirmed by MD VINH, JASON ([id number]) on 02/24/2020 9:22:21 AM Referred By: VEE GLASGOW Confirmed By:JASON JUSTICE MD
== END 2020-02-24 05:27 | disposition home or self-care (01) ==
LOC: FER 02:23
PROC: 3E033NZ Introduction of Analgesics, Hypnotics, Sedatives into Peripheral Vein, Percutaneous Approach (ICD-10-PCS; principal; 2020-02-24)
PROC: 3E0337Z Introduction of Electrolytic and Water Balance Substance into Peripheral Vein, Percutaneous Approach (ICD-10-PCS; 2020-02-24)
DX: S29.012A Strain of muscle and tendon of back wall of thorax, initial encounter (principal)
CPT/HCPCS: 36415; 71046-TC-FY; 80053; 82550; 82553; 84484; 85025; 93005; 99285-25

== ENCOUNTER 2020-12-02 03:59 | Emergency (ER) | payer OTHER ==
[2020-12-02 04:03] VITALS: BP 139/92; PULSE 61; TEMP 97.7; BMI 24.9
[2020-12-02] MEDS ORDERED: ONDANSETRON 4 MG/2 ML VIAL IVPB ONE (04:15)
[2020-12-02] MEDS ORDERED: KETOROLAC TROMETHAMINE 30 MG/1 ML VIAL IVPUSH ONE (04:15)
[2020-12-02] MEDS ORDERED: morphine CARPU-JECT 2 MG/1 ML DISP.SYRIN IVPUSH ONE (04:15)
[2020-12-02] MEDS ORDERED: SODIUM CHLORIDE 1,000 ML IV ONE (04:15)
[2020-12-02] MEDS ORDERED: KETOROLAC TROMETHAMINE 30 MG/1 ML VIAL ONE (04:17)
[2020-12-02] MEDS ORDERED: ONDANSETRON 4 MG/2 ML VIAL ONE (04:17)
[2020-12-02] MEDS ORDERED: morphine SULFATE 4 MG/ML VIAL ONE (04:17)
[2020-12-02 05:01] LABS: BASO % 0.4 % (0-2.0); EOS % 4.3 % (0-4.5); HEMATOCRIT 45.5 % (35.4-49); HEMOGLOBIN 15.7 GM/dL (11.7-16.9); LYMPH % 43.7 % (8-40); MCHC 34.6 g/dl (32.0-35.9); MEAN CELL VOLUME 92.6 fl (80-96); MEAN PLT VOLUME 9.7 fl (7.5-11.1); MONO % 9.7 % (3.8-10.2); NEUT % 41.9 % (42.8-82.8); PLATELET COUNT 174 K/MM3 (134-434); RBC 4.91 M/mm3 (4.00-5.60); RDW 13.5 % (11.9-15.9); WHITE BLOOD COUNT 7.5 K/mm3 (4.0-10.0)
[2020-12-02 05:17] LABS: CALCIUM 8.6 mg/dL (8.5-10.1)
[2020-12-02 05:18] LABS: ALBUMIN 4.2 g/dl (3.4-5.0); BLOOD UREA NITROGEN 18.5 mg/dL (7-18)
[2020-12-02 05:21] LABS: CREATININE 1.3 mg/dL (0.55-1.3)
[2020-12-02 05:22] LABS: BILIRUBIN,TOTAL 1.1 mg/dL (0.2-1)
[2020-12-02 05:23] LABS: TOT PROT 7.7 g/dl (6.4-8.2)
== END 2020-12-02 06:14 | disposition home or self-care (01) ==
LOC: FER 03:59
PROC: 3E0333Z Introduction of Anti-inflammatory into Peripheral Vein, Percutaneous Approach (ICD-10-PCS; principal; 2020-12-02)
PROC: 3E033NZ Introduction of Analgesics, Hypnotics, Sedatives into Peripheral Vein, Percutaneous Approach (ICD-10-PCS; 2020-12-02)
PROC: 3E033GC Introduction of Other Therapeutic Substance into Peripheral Vein, Percutaneous Approach (ICD-10-PCS; 2020-12-02)
PROC: 3E0337Z Introduction of Electrolytic and Water Balance Substance into Peripheral Vein, Percutaneous Approach (ICD-10-PCS; 2020-12-02)
DX: N23 Unspecified renal colic (principal)
CPT/HCPCS: 36415; 74176-TC; 80053; 81003; 81015; 85025; 96361; 96374; 96375; 99285-25

== ENCOUNTER 2020-12-03 19:25 | Emergency (ER) | payer OTHER ==
[2020-12-03] MEDS ORDERED: SODIUM CHLORIDE 0.9% 500 ML INFUS.BAG IV ONE (19:37)
[2020-12-03] MEDS ORDERED: ACETAMINOPHEN 500 MG TABLET (FP) PO ONE (19:37)
[2020-12-03 19:38] VITALS: BP 123/78; PULSE 73; TEMP 98.3; BMI 24.9
[2020-12-03] MEDS ORDERED: ACETAMINOPHEN 325 MG TABLET (FP) ONE (19:45)
[2020-12-03 20:15] LABS: BASO % 0.8 % (0-2.0); EOS % 4.7 % (0-4.5); HEMATOCRIT 45.3 % (35.4-49); HEMOGLOBIN 15.4 GM/dl (11.7-16.9); MCH 31.7 pg (25.7-33.7); MCHC 34.1 g/dl (32.0-35.9); MEAN CELL VOLUME 93.1 fl (80-96); MEAN PLT VOLUME 9.5 fl (7.5-11.1); MONO % 8.5 % (3.8-10.2); PLATELET COUNT 163 K/MM3 (134-434); RBC 4.87 M/mm3 (4.00-5.60); RDW 12.6 % (11.9-15.9); WHITE BLOOD COUNT 7.4 K/mm3 (4.0-10.8)
[2020-12-03 20:23] LABS: ALBUMIN 4.4 g/dl (3.4-5.0); BILIRUBIN,TOTAL 1.4 mg/dl (0.2-1); CALCIUM 9.7 mg/dl (8.5-10); CREATININE 1.4 mg/dl (0.55-1.3); TOT PROT 7.3 g/dl (6.4-8.2)
== END 2020-12-03 22:27 | disposition home or self-care (01) ==
LOC: FER 19:25
DX: N20.1 Calculus of ureter (principal)
CPT/HCPCS: 36415; 76775-TC; 80053; 81003; 85025; 87086; 99284-25

== ENCOUNTER 2021-03-08 14:23 | Emergency (ER) | payer OTHER ==
[2021-03-08 14:48] VITALS: BP 120/86; PULSE 75; TEMP 98.3; BMI 25.0
[2021-03-08] MEDS ORDERED: IBUPROFEN 600 MG TABLET (FP) PO ONE ×2 (14:59→15:38)
[2021-03-08 16:00] LABS: BASO % 4.3 % (0-2.0); EOS % 2.9 % (0-4.5); HEMATOCRIT 43.8 % (35.4-49); HEMOGLOBIN 15.3 GM/dl (11.7-16.9); LYMPH % 19.7 % (8-40); MCH 32.3 pg (25.7-33.7); MCHC 34.9 g/dl (32.0-35.9); MEAN CELL VOLUME 92.5 fl (80-96); MEAN PLT VOLUME 9.2 fl (7.5-11.1); MONO % 9.1 % (3.8-10.2); PLATELET COUNT 170 10^3/uL (134-434); RBC 4.73 M/mm3 (4.00-5.60); RDW 12.4 % (11.9-15.9); WHITE BLOOD COUNT 7.1 K/mm3 (4.0-10.8)
[2021-03-08 16:36] LABS: ALBUMIN 4.4 g/dl (3.4-5.0); ALK PHOS 65 U/L (45-117); ANION GAP 8 MMOL/L (8-16); BILIRUBIN,TOTAL 1.3 mg/dl (0.2-1); CALCIUM 9.3 mg/dl (8.5-10); CHLORIDE 102 mmol/L (98-107); CO2 25 mmol/L (21-32); GLUCOSE,RANDOM 119 mg/dl (74-106); SGOT/AST 39 U/L (15-37); SGPT/ALT 58 U/L (13-61); SODIUM 135 mmol/L (136-145)
== END 2021-03-08 18:35 | disposition home or self-care (01) ==
LOC: FER 14:23
DX: I30.9 Acute pericarditis, unspecified (principal)
CPT/HCPCS: 36415; 71045-TC-FY; 80053; 82550; 84484; 85025; 93005; 99285-25; C9803; U0003; U0005

== ENCOUNTER 2021-03-27 14:07 | Emergency (ER) | payer OTHER ==
[2021-03-27 14:35] VITALS: BP 116/61; PULSE 62; TEMP 98.1; BMI 25.0
[2021-03-27] MEDS ORDERED: IBUPROFEN 600 MG TABLET (FP) PO ONE ×2 (15:01→15:13)
== END 2021-03-27 16:49 | disposition home or self-care (01) ==
LOC: FER 14:07
DX: M25.572 Pain in left ankle and joints of left foot (principal)
CPT/HCPCS: 36415; 73610-TC-LT-FY; 73630-TC-LT; 86618; 99283-25

== ENCOUNTER 2022-11-16 21:15 | Emergency (ER) | payer OTHER ==
[2022-11-16 22:18] VITALS: BP 133/85; PULSE 103; RESP 16; TEMP 101; BMI 25.2
[2022-11-16] MEDS ORDERED: ACETAMINOPHEN 500 MG TABLET (FP) PO ONE (22:24)
[2022-11-16] MEDS ORDERED: ACETAMINOPHEN 500 MG TABLET (FP) ONE (22:26)
== END 2022-11-16 22:29 | disposition home or self-care (01) ==
LOC: FER 21:15
DX: R50.9 Fever, unspecified (principal); R09.81 Nasal congestion; R05.1 Acute cough; B34.9 Viral infection, unspecified; Z20.822 Contact with and (suspected) exposure to COVID-19
CPT/HCPCS: 99282-25

== ENCOUNTER 2023-10-18 01:16 | Emergency (ER) | payer OTHER ==
[2023-10-18 01:23] VITALS: BP 124/81; PULSE 80; RESP 16; TEMP 98.7; BMI 26.6
[2023-10-18] MEDS ORDERED: KETOROLAC TROMETHAMINE 30 MG/1 ML VIAL ONE (01:44)
[2023-10-18] MEDS: SODIUM CHLORIDE 1,000 ML IV ONE (01:48)
[2023-10-18] MEDS: KETOROLAC TROMETHAMINE 30 MG/1 ML VIAL IVPUSH ONE (01:48)
[2023-10-18 02:55] LABS: URINE APPEARANCE CLEAR; URINE BILIRUBIN NEGATIVE (NEGATIVE); URINE COLOR YELLOW; URINE GLUCOSE (UA) NEGATIVE (NEGATIVE); URINE KETONE NEGATIVE (NEGATIVE); URINE LEUK ESTERASE NEGATIVE (NEGATIVE); URINE NITRITE NEGATIVE (NEGATIVE); URINE PROTEIN NEGATIVE (NEGATIVE)
[2023-10-18 03:04] LABS: HEMATOCRIT 45.2 % (35.4-49); HEMOGLOBIN 15.8 GM/dL (11.7-16.9); MCH 31.4 pg (25.7-33.7); MEAN CELL VOLUME 89.9 fl (80-96); MEAN PLT VOLUME 8.8 fl (7.5-11.1); PLATELET COUNT 209 10^3/uL (134-434); RBC 5.03 M/mm3 (4.00-5.60); RDW 13.6 % (11.9-15.9); WHITE BLOOD COUNT 8.4 K/mm3 (4.0-10.0)
[2023-10-18 05:29] LABS: ALBUMIN 4.1 g/dl (3.4-5.0); BILIRUBIN,TOTAL 0.9 mg/dL (0.2-1); BLOOD UREA NITROGEN 19.2 mg/dL (7-18); CALCIUM 8.9 mg/dL (8.5-10.1); CREATININE 1.2 mg/dL (0.55-1.3); POTASSIUM 3.9 mmol/L (3.5-5.1); TOT PROT 7.9 g/dl (6.4-8.2)
== END 2023-10-18 07:01 | disposition home or self-care (01) ==
LOC: FER 01:16
PROC: 3E0333Z Introduction of Anti-inflammatory into Peripheral Vein, Percutaneous Approach (ICD-10-PCS; principal; 2023-10-18)
PROC: 3E0337Z Introduction of Electrolytic and Water Balance Substance into Peripheral Vein, Percutaneous Approach (ICD-10-PCS; 2023-10-18)
DX: R10.84 Generalized abdominal pain (principal)
CPT/HCPCS: 36415; 74176-TC; 80053; 81003; 85027; 87086; 99284-25